=== PATIENT | female | born 1975 | race American Indian/Alaskan Native ===

== ENCOUNTER 2019-10-19 09:57 | Outpatient (CLI) | payer BC ==
--- NOTE | 2019-10-19 11:27 | Mammography Report ---
BILATERAL DIGITAL SCREENING MAMMOGRAM WITH CAD INDICATION: Routine screening mammography. TECHNIQUE: Digital bilateral 2D mammography was obtained in the craniocaudal and mediolateral obliq ue projections. This examination was interpreted with the benefit of Computer-Aided Detection analysi s. COMPARISON: 08/06/2016. FINDINGS: Breast Density: The breasts are extremely dense, which lowers the sensitivity of mammography. No suspicious mass, microcalcifications, or architectural distortion. Scattered diffuse calcification s in both breasts appear not significantly changed. IMPRESSION: No evidence of breast malignancy. Recommend routine screening mammogram in one year. BI-RADS Category 2: Benign. No mammographic evidence of malignancy. Recommend routine screening ma mmography in one year. A "normal" or negative report should not discourage follow up or biopsy of a clinically significant f inding. A written summary of these findings will be mailed to the patient. The patient will be entered into a mammography reporting system which will generate a reminder letter for the patient's next appointmen t at the appropriate interval. The [employer] recommends yearly mammograms starting at age 40 and continuing as l cristobal as a woman is in good health. Breast MRI is recommended for women with an approximate 20-25% or greater lifetime risk of breast cancer, including women with a strong family history of breast or ova teresa cancer or who have been treated for Hodgkin's disease. Signer Name: Obie North MD Signed: 10/19/2019 11:23 AM Workstation Name: [id number]
== END 2019-10-19 09:58 | disposition home or self-care (01) ==
LOC: MAMMO 09:57
PROVIDERS: ATTEND Obstetrics & Gynecology
DX: Z12.31 Encounter for screening mammogram for malignant neoplasm of breast (principal)
CPT/HCPCS: 77067

== ENCOUNTER 2020-11-07 09:27 | Outpatient (CLI) | payer BC ==
--- NOTE | 2020-11-07 11:47 | Mammography Report ---
DIGITAL SCREENING MAMMOGRAM WITH CAD, 11/07/2020 CLINICAL INFORMATION / INDICATION: Routine screening mammography. TECHNIQUE: Digital bilateral 2D mammography was obtained in the craniocaudal and mediolateral obliqu e projections. This examination was interpreted with the benefit of Computer-Aided Detection analysis . COMPARISON: 10/19/2019 FINDINGS: Breast Density: The breasts are extremely dense, which lowers the sensitivity of mammography. No dominant mass, suspicious calcifications, or architectural distortion in either breast. Bilateral calcifications are not significantly changed. IMPRESSION: No mammographic evidence of malignancy. Follow up recommendation: Routine yearly BI-RADS Category 2: Benign. A "normal" or negative report should not discourage follow up or biopsy of a clinically significant f inding. A written summary of these findings will be mailed to the patient. The patient will be entered into a mammography reporting system which will generate a reminder letter for the patient's next appointmen t at the appropriate interval. The [employer] recommends yearly mammograms starting at age 40 and continuing as l cristobal as a woman is in good health. Breast MRI is recommended for women with an approximate 20-25% or greater lifetime risk of breast cancer, including women with a strong family history of breast or ova teresa cancer or who have been treated for Hodgkin's disease. Signer Name: Avel Bose MD Signed: 11/07/2020 10:15 AM Workstation Name: [id number]
== END 2020-11-07 09:28 | disposition home or self-care (01) ==
LOC: MAMMO 09:27
PROVIDERS: ATTEND Obstetrics & Gynecology
DX: Z12.31 Encounter for screening mammogram for malignant neoplasm of breast (principal)
CPT/HCPCS: 77067

== ENCOUNTER 2021-12-07 07:06 | Outpatient (CLI) | payer BC ==
--- NOTE | 2021-12-07 11:41 | Mammography Report ---
DIGITAL SCREENING MAMMOGRAM WITH CAD, 12/07/2021 CLINICAL INFORMATION / INDICATION: Routine screening mammography. SCREENING MAMMOGRAM TECHNIQUE: Digital bilateral 2D mammography was obtained in the craniocaudal and mediolateral obliqu e projections. This examination was interpreted with the benefit of Computer-Aided Detection analysis . COMPARISON: 11/07/2020 and 10/19/2019 FINDINGS: Breast Density: The breasts are extremely dense, which lowers the sensitivity of mammography. No dominant mass, suspicious calcifications, or architectural distortion in either breast. IMPRESSION: No mammographic evidence of malignancy. Follow up recommendation: Routine yearly BI-RADS Category 2: BENIGN. A "normal" or negative report should not discourage follow up or biopsy of a clinically significant f inding. A written summary of these findings will be mailed to the patient. The patient will be entered into a mammography reporting system which will generate a reminder letter for the patient's next appointmen t at the appropriate interval. The [employer] recommends yearly mammograms starting at age 40 and continuing as l cristobal as a woman is in good health. Breast MRI is recommended for women with an approximate 20-25% or greater lifetime risk of breast cancer, including women with a strong family history of breast or ova teresa cancer or who have been treated for Hodgkin's disease. Signer Name: Eben Penaloza MD Signed: 12/07/2021 11:37 AM Workstation Name: [id number]
== END 2021-12-07 07:07 | disposition home or self-care (01) ==
LOC: MAMMO 07:06
PROVIDERS: ATTEND Obstetrics & Gynecology
DX: Z12.31 Encounter for screening mammogram for malignant neoplasm of breast (principal)
CPT/HCPCS: 77067